=== PATIENT | male | born 1965 | race Caucasian/White ===

== ENCOUNTER → 2018-09-23 | Outpatient (CLI) | payer BC ==
[2018-09-23 16:19] LABS: Total Eosinophil Count 197 #EOS/uL (150-300)
[2018-09-23 17:08] LABS: Erythrocyte Sedimentation Rate 3 mm/hr (0-15)
[2018-09-23 20:56] LABS: Immunoglobulin E 7.88 IU/mL (0.00-114.00)
[2018-09-23 21:16] LABS: Birch IgE <0.10 kU/L; Elm IgE <0.10 kU/L; Oak IgE <0.10 kU/L
[2018-09-23 21:17] LABS: Ragweed,Common IgE <0.10 kU/L
[2018-09-23 21:18] LABS: Red Top (Bentgrass) IgE <0.10 kU/L
[2018-09-23 21:19] LABS: Cat Epith & Dander IgE <0.10 kU/L; Cockroach IgE <0.10 kU/L; Dog Dander IgE <0.10 kU/L
[2018-09-23 21:20] LABS: Aspergillus fumagatus IgE <0.10 kU/L; Maple (Box Elder) IgE <0.10 kU/L
[2018-09-27 13:04] LABS: Alternaria alternata IgE <0.10 kU/L
== END | disposition home or self-care (01) ==
LOC: LABWHC1 15:35
PROVIDERS: ATTEND Internal Medicine Critical Care Medicine
DX: J45.909 Unspecified asthma, uncomplicated (principal)
CPT/HCPCS: 36415; 82785; 85008; 85652; 86003

== ENCOUNTER 2018-11-22 06:32 | Day surgery (SDC) | payer BC ==
[2018-11-21 08:21] VITALS: BMI 25.2
[~2018-11-22 06:32] MED LIST: ALBUTEROL NEB (CONC) 2.5 MG/0.5 ML INHALATION ONE; ATROPINE SULFATE 0.4 MG/ML 1 ML VIAL IM ONE; LACTATED RINGERS 1,000 ML IV SCH; LIDOCAINE 2% (PF) 20 MG/ML 5 ML VIAL INHALATION ONE; LIDOCAINE VISCOUS 300 MG/15 ML CUP MUCOUS MEM ONE; SODIUM CHLORIDE 0.9% 1,000 ML IV SCH
[2018-11-22 06:52] VITALS: TEMP 98.4
[2018-11-22 06:55] LABS: Glucose,Whole Blood 86 mg/dL (75-99)
[2018-11-22] MEDS ORDERED: LIDOCAINE 1% INJ 10MG/ML (20 ML MDV) ONE (08:09)
[2018-11-22] MEDS ORDERED: PROPOFOL 10 MG/ML 20 ML VIAL IV ONE (08:09)
[2018-11-22] MEDS ORDERED: fentaNYL (PF) 50 MCG/ML 2 ML AMP ONE (08:09)
[2018-11-22] MEDS ORDERED: MIDAZOLAM 2 MG/2 ML VIAL ONE (08:09)
[2018-11-22] MEDS ORDERED: LIDOCAINE 2% INJ 20 MG/ML INTRATRACH ONE (08:23)
--- NOTE | 2018-11-22 08:33 | P.PCN ---
Date of Procedure: 11/22/18 Preoperative Diagnosis: Dyspnea, abnormal CT of the chest Postoperative Diagnosis: Suspect pneumonia with diffuse inflammatory changes throughout the airways and copious purulent secretions Procedure(s) Performed: Flexible bronchoscopy/BAL Anesthesia: MAC Surgeon: Marium Chauhan Estimated Blood Loss (ml): 0 Pathology: other Condition: stable Disposition: same day Operative Findings: This is a 53 year old male patient with history of RA and he is maintained on Orencia. The patient has a recent CAT scan of the chest that showed diffuse bilateral groundglass pulmonary infiltrates with reticulonodular changes suspecting ILD versus infection. For that reason a bronchoscopy was indicated This procedure was done in the bronchoscopy suite. The patient give us a consent. A timeout was done. Under conscious sedation, as the patient was being given a combination of propofol and Versed and fentanyl, the procedure was completed without any complication. After achieving adequate sedation, the flexible bronchoscope was inserted to the right nostril. Examination the post erior pharynx, epiglottis, arytenoids, vocal cords and the rest of the laryngeal structures were all within normal limits. A total of 2 mL of 1% lidocaine was administered on the vocal cords and following that the bronchoscope was advanced into the upper trachea. Just immediately after intubating the patient, the subglottic area was quite abnormal. There was extensive inflammatory changes circumferentially in the upper trachea just at the level of the cricoid cartilage. This information was quite extensive and there was some violaceous transformation of the mucosa probably due to some submucosal bleeding. There was other inflammatory changes and the segmented was quite inflamed was extending approximately 1 cm below the vocal cords/subglottic area. The trachea was inspected. There was a component of mild sicca bronchomalacia. There was extensive and copious purulent respiratory secretions retained throughout the airways. As the bronchoscope was advanced, the trachea was inspected, sari was sharp in the midline, bilateral mainstem bronchi were noted. Similar amount of copious purulent respiratory secretions were retained throughout the airways bilaterally in the upper and lower lobes. Therapeutic airway suctioning was done. A total of 6 mL of fluid was infused and approximately 25-30 mL of pulled respiratory secretion was suctioned from the airway without any complication. Following that, the airway inspection was completed and I noted that there was diffuse mucosal inflammatory changes throughout the airways both in the upper and lower lobes bilaterally. The visualized airways including the bilateral mainstem bronchi, right upper lobe bronchus, bronchus intermedius, right middle lobe bronchus, right lower lobe bronchus, left upper lobe bronchus and left lower lobe bronchussegments and subsegments. All of the secretions were suctioned out. At the completion of the procedure, the airways were pre-much free of any purulent respiratory secretions. The mucosa as mentioned was inflamed although most of the inflammation was noted in the subglottic area. No endobronchial tumors or lesions. No polyps. No lesions. No foreign bodies. Bronchoscope was removed and the patient was just recovery in stable condition. Findings are highly suspicious for an underlying infection. The lavage was collected will be sent for microbial analysis. Further recommendations are to follow. The patient will be discharged home once cleared by anesthesia.
[2018-11-22 08:37] VITALS: RESP 16
[2018-11-22 09:04] VITALS: BP 173/88; PULSE 61
== END 2018-11-22 09:10 | disposition home or self-care (01) ==
LOC: ORWHC2ENDO 06:32
PROVIDERS: ATTEND Internal Medicine Critical Care Medicine
DX: J18.9 Pneumonia, unspecified organism (principal); J45.50 Severe persistent asthma, uncomplicated; J44.9 Chronic obstructive pulmonary disease, unspecified; I10 Essential (primary) hypertension; J32.4 Chronic pansinusitis; M06.9 Rheumatoid arthritis, unspecified; Z88.0 Allergy status to penicillin; Z88.1 Allergy status to other antibiotic agents; Z88.5 Allergy status to narcotic agent; Z88.6 Allergy status to analgesic agent; Z88.8 Allergy status to other drugs, medicaments and biological substances; Z79.899 Other long term (current) drug therapy; Z79.51 Long term (current) use of inhaled steroids; Z90.49 Acquired absence of other specified parts of digestive tract; Z98.890 Other specified postprocedural states; Z90.89 Acquired absence of other organs; Z83.438 Family history of other disorder of lipoprotein metabolism and other lipidemia; Z82.5 Family history of asthma and other chronic lower respiratory diseases
CPT/HCPCS: 94640; 87798 ×3; 87496; 87498; 87529; 88108; 88305; 87252; 87502; 87634; 87070; 87205; 87116; 87102; 87206; 87299; 31624; J2001 ×3; J2250; J3010; J2704

== ENCOUNTER → 2018-12-05 | Outpatient (CLI) | payer BC ==
[2018-12-06 01:06] LABS: Rheumatoid Factor 163 IU/mL (0-15)
[2018-12-06 01:15] LABS: Cyclic Citrull Pep IgG Unit >300.0 U/mL; Cyclic Citrullinated Pep IgG POSITIVE (NEGATIVE)
[2018-12-06 13:29] LABS: C-ANCA <1:20 Titer (<1:20)
== END | disposition home or self-care (01) ==
LOC: LABWHC1 15:53
PROVIDERS: ATTEND Internal Medicine Critical Care Medicine
DX: J45.50 Severe persistent asthma, uncomplicated (principal)
CPT/HCPCS: 36415; 85652; 86200; 86255; 86431

== ENCOUNTER → 2019-11-03 | Outpatient (CLI) | payer BC ==
[2019-11-03 08:48] LABS: Basophils # (A) 0.1 k/uL (0-0.2); Basophils % (A) 1 %; Eosinophils # (A) 0.1 k/uL (0-0.7); Eosinophils % (A) 2 %; HCT 48.9 % (39.0-53.0); HGB 15.8 gm/dL (13.0-17.5); Lymphocytes # (A) 1.4 k/uL (1.0-4.8); Lymphocytes % (A) 20 %; MCH 32.7 pg (25.0-35.0); MCHC 32.4 g/dL (31.0-37.0); MCV 100.9 fL (80.0-100.0); Macrocytosis Slight; Monocytes # (A) 0.5 k/uL (0-1.0); Monocytes % (A) 7 %; Neutrophils # (A) 4.8 k/uL (1.3-7.7); Neutrophils % (A) 68 %; Platelet Count 267 k/uL (150-450); RBC 4.84 m/uL (4.30-5.90)
[2019-11-03 18:32] LABS: Albumin 4.3 g/dL (3.80-4.90); Albumin/Globulin Ratio 2.53 (1.60-3.17); Anion Gap 10.5 mmol/L (4.00-12.00); BUN/Creat Ratio 14.55 Ratio (12.00-20.00); Calcium 8.9 mg/dL (8.7-10.3); Carbon Dioxide 22.5 mmol/L (21.6-31.8); Chol/HDL Ratio 2.88; Globulin 1.7 g/dL (1.6-3.3); LDL Cholesterol,Calculated 98.2 mg/dL (0.0-131.0); Non-African American GFR(CKD) 76.8 (60.0-200.0); Potassium 4.4 mmol/L (3.5-5.5); Total Bilirubin 0.7 mg/dL (0.3-1.2); VLDL Calculation 14.8 mg/dL (5.00-40.00)
[2019-11-03 18:41] LABS: Prostate Specific Antigen 0.6 ng/mL (0.0-3.5)
== END | disposition home or self-care (01) ==
LOC: LABWHC1 07:16
PROVIDERS: ATTEND Family Medicine
DX: Z00.00 Encounter for general adult medical examination without abnormal findings (principal); J45.41 Moderate persistent asthma with (acute) exacerbation; M05.89 Other rheumatoid arthritis with rheumatoid factor of multiple sites; J30.89 Other allergic rhinitis; Z13.220 Encounter for screening for lipoid disorders; Z12.5 Encounter for screening for malignant neoplasm of prostate
CPT/HCPCS: 36415; 80053; 80061; 84153; 84443; 85025

== ENCOUNTER → 2020-03-12 | Outpatient (CLI) | payer BC | END | disposition home or self-care (01) | LOC: CPPFTMAIN 16:08 | PROVIDERS: ATTEND Internal Medicine Critical Care Medicine | DX: J98.8 Other specified respiratory disorders (principal) | CPT/HCPCS: 94010; 94726; 94729 ==

== ENCOUNTER → 2020-08-02 | Outpatient (CLI) | payer BC ==
[2020-08-02 11:34] LABS: Basophils # (A) 0.05 X 10*3/uL (0.00-0.10); Basophils % (A) 0.7 %; Eosinophils # (A) 0.12 X 10*3/uL (0.04-0.35); Eosinophils % (A) 1.7 %; HCT 46.5 % (39.6-50.0); HGB 14.9 g/dL (13.0-17.0); Lymphocytes # (A) 1.28 X 10*3/uL (0.90-5.00); Lymphocytes % (A) 17.9 %; MCH 33.3 pg (27.0-32.0); Mean Platelet Volume 9.8 fL (9.5-12.2); Monocytes # (A) 0.85 X 10*3/uL (0.20-1.00); Monocytes % (A) 11.9 %; Neutrophils # (A) 4.85 X 10*3/uL (1.80-7.70); Neutrophils % (A) 67.5 %; Platelet Count 299 X 10*3/uL (140-440); RBC 4.47 X 10*6/uL (4.40-5.60); WBC 7.17 X 10*3/uL (4.50-10.00)
[2020-08-02 12:35] LABS: African American GFR (CKD) 79.5 (60.0-200.0); Albumin 4.2 g/dL (3.80-4.90); Albumin/Globulin Ratio 2.1 (1.60-3.17); Anion Gap 8.6 mmol/L (4.00-12.00); BUN/Creat Ratio 16.67 Ratio (12.00-20.00); Carbon Dioxide 24.4 mmol/L (21.6-31.8); Chol/HDL Ratio 2.71; LDL Cholesterol,Calculated 82.8 mg/dL (0.0-131.0); Non-African American GFR(CKD) 68.6 (60.0-200.0); Potassium 4.9 mmol/L (3.5-5.5); Total Bilirubin 0.6 mg/dL (0.3-1.2); Total Protein 6.2 g/dL (6.2-8.2); VLDL Calculation 11.2 mg/dL (5.00-40.00)
== END | disposition home or self-care (01) ==
LOC: LABWHC1 07:13
PROVIDERS: ATTEND Family Medicine
DX: Z00.00 Encounter for general adult medical examination without abnormal findings (principal); Z12.5 Encounter for screening for malignant neoplasm of prostate; Z13.220 Encounter for screening for lipoid disorders; M05.89 Other rheumatoid arthritis with rheumatoid factor of multiple sites; J45.41 Moderate persistent asthma with (acute) exacerbation; J30.89 Other allergic rhinitis
CPT/HCPCS: 36415; 80053; 80061; 84443; 85025

== ENCOUNTER → 2021-09-15 | Outpatient (CLI) | payer BC ==
[2021-09-15 15:12] LABS: ALT 16 U/L (10-49); AST 24 U/L (14-35); African American GFR (CKD) 72.4 (60.0-200.0); Albumin 4.3 g/dL (3.8-4.9); Albumin/Globulin Ratio 1.83 (1.60-3.17); Alkaline Phosphatase 71 U/L (41-126); BUN/Creat Ratio 13.26 Ratio (12.00-20.00); Blood Urea Nitrogen 17.1 mg/dL (9.0-27.0); Calcium 9.5 mg/dL (8.7-10.3); Carbon Dioxide 23.5 mmol/L (20.0-27.5); Chloride 103 mmol/L (96-109); Globulin 2.3 g/dL (1.6-3.3); Glucose 85 mg/dL (70-110); Non-African American GFR(CKD) 62.4 (60.0-200.0); Potassium 4.8 mmol/L (3.5-5.5); Sodium 139 mmol/L (135-145); Total Protein 6.6 g/dL (6.2-8.2)
[2021-09-15 15:14] LABS: Basophils # (A) 0.04 X 10*3/uL (0.00-0.10); Basophils % (A) 0.5 %; Eosinophils # (A) 0.14 X 10*3/uL (0.04-0.35); Eosinophils % (A) 1.6 %; HCT 48.1 % (39.6-50.0); HGB 15.3 g/dL (13.0-17.0); Immature Grans, Automated 0.3 %; Lymphocytes # (A) 1.28 X 10*3/uL (0.90-5.00); Lymphocytes % (A) 14.7 %; MCH 33.2 pg (27.0-32.0); MCHC 31.8 g/dL (32.0-37.0); MCV 104.3 fL (80.0-97.0); Mean Platelet Volume 9.9 fL (9.5-12.2); Monocytes # (A) 0.78 X 10*3/uL (0.20-1.00); NRBC Per 100 WBC 0 /100 WBCS (0.0-0.0); Neutrophils # (A) 6.43 X 10*3/uL (1.80-7.70); Neutrophils % (A) 73.9 %; Platelet Count 329 X 10*3/uL (140-440); RBC 4.61 X 10*6/uL (4.40-5.60); RDW 13.6 % (11.5-14.5)
[2021-09-15 15:26] LABS: Chol/HDL Ratio 2.73 Ratio
== END | disposition home or self-care (01) ==
LOC: LABWHC1 07:15
PROVIDERS: ATTEND Family Medicine
DX: Z00.00 Encounter for general adult medical examination without abnormal findings (principal); I10 Essential (primary) hypertension; Z13.21 Encounter for screening for nutritional disorder; Z13.220 Encounter for screening for lipoid disorders; Z13.228 Encounter for screening for other metabolic disorders; Z12.5 Encounter for screening for malignant neoplasm of prostate
CPT/HCPCS: 36415; 80053; 80061; 83721; 84153; 84443; 85025

== ENCOUNTER → 2022-11-25 | Outpatient (CLI) | payer BC ==
[2022-11-25 15:36] LABS: Basophils # (A) 0.04 X 10*3/uL (0.00-0.10); Basophils % (A) 0.8 %; Eosinophils # (A) 0.09 X 10*3/uL (0.04-0.35); Eosinophils % (A) 1.9 %; HCT 48.2 % (39.6-50.0); HGB 16.1 d/dL (13.0-17.0); Lymphocytes # (A) 0.83 X 10*3/uL (0.90-5.00); Lymphocytes % (A) 17.2 %; MCH 34.5 pg (27.0-32.0); MCHC 33.4 d/dL (32.0-37.0); MCV 103.4 FL (80.0-97.0); Mean Platelet Volume 10.1 FL (9.5-12.2); Monocytes % (A) 14.5 %; NRBC Per 100 WBC 0 X 10*3/uL (0.00-0.01); Neutrophils # (A) 3.14 X 10*3/uL (1.80-7.70); Platelet Count 288 X 10*3/uL (140-440); RBC 4.66 X 10*6/uL (4.40-5.60); RDW 13.9 % (11.5-14.5); WBC 4.83 X 10*3/uL (4.50-10.00)
[2022-11-25 16:20] LABS: ALT 31 U/L (10-49); AST 30 U/L (14-35); Albumin 4.4 d/dL (3.8-4.9); Alkaline Phosphatase 77 U/L (41-126); BUN/Creat Ratio 13.57 Ratio (12.00-20.00); Calcium 9.5 mg/dL (8.7-10.3); Carbon Dioxide 24.9 mmol/L (21.6-31.8); Chloride 106 mmol/L (96-109); Chol/HDL Ratio 3.01 Ratio; Glucose 105 mg/dL (70-110); LDL Cholesterol,Calculated 110.7 mg/dL (0.0-131.0); Potassium 5.6 mmol/L (3.5-5.5); Prostate Specific Antigen 1.25 ng/mL (0.000-3.500); Sodium 142 mmol/L (135-145); Total Bilirubin 0.5 mg/dL (0.3-1.2); Total Protein 6.4 d/dL (6.2-8.2); VLDL Calculation 12.86 mg/dL (5.00-40.00)
== END | disposition home or self-care (01) ==
LOC: LABWHC1 08:28
PROVIDERS: ATTEND Family Medicine
DX: Z00.00 Encounter for general adult medical examination without abnormal findings (principal); Z12.5 Encounter for screening for malignant neoplasm of prostate; I10 Essential (primary) hypertension
CPT/HCPCS: 36415; 80053; 80061; 84153; 84443; 85025